=== PATIENT | male | born 1990 | race Caucasian/White ===

== ENCOUNTER 2024-08-05 12:16 | Emergency (ER) | payer OTHER ==
[~2024-08-05] VITALS: Ht 182.9 cm; Wt 102.0 kg
[2024-08-05 12:31] VITALS: TEMP 98.8
[2024-08-05 13:14] LABS: BASOPHILS % (AUTO) 0.6 % (0-1); EOSINOPHILS # (AUTO) 0.1 X10'3 (0-0.9); EOSINOPHILS % (AUTO) 0.9 % (0-6); HEMATOCRIT 47.3 % (42.0-52.0); HEMOGLOBIN 15.9 g/dl (14.0-17.9); LYMPHOCYTES # (AUTO) 2.3 X10'3 (1.1-4.8); LYMPHOCYTES % (AUTO) 32.1 % (21-51); MEAN CORPUSCULAR HEMOGLOBIN 28.8 PG (27.0-31.0); MEAN CORPUSCULAR HGB CONC 33.6 g/dL (33.0-36.5); MEAN CORPUSCULAR VOLUME 85.6 FL (78-98); MEAN PLATELET VOLUME 8.4 FL (7.4-10.4); MONOCYTES # (AUTO) 0.6 X10'3 (0-0.9); MONOCYTES % (AUTO) 7.8 % (2-12); NEUTROPHILS # (AUTO) 4.2 X10'3 (1.8-7.7); NEUTROPHILS % (AUTO) 58.6 % (42-75); PLATELET COUNT 227 X10'3 (140-440); RED BLOOD COUNT 5.53 X10'6 (4.70-6.10); WHITE BLOOD COUNT 7.2 X10'3 (4.5-11.0)
[2024-08-05 13:35] LABS: ALANINE AMINOTRANSFERASE 63 U/L (12-78); ALBUMIN 4.2 G/DL (3.4-5.0); ALBUMIN/GLOBULIN RATIO 1.1 (1.1-1.5); ALKALINE PHOSPHATASE 74 IU/L (46-116); ANION GAP 8 (8-16); ASPARTATE AMINO TRANSFERASE 43 U/L (10-37); BILIRUBIN,TOTAL 0.5 MG/DL (0.1-1.0); BLOOD UREA NITROGEN 11 MG/DL (7-18); BUN/CREATININE RATIO 10.9 (10.0-20.0); CHLORIDE 103 MMOL/L (99-107); CREATININE 1.01 MG/DL (0.60-1.10); GLUCOSE 91 MG/DL (70-104); LIPASE 56 U/L (16-77); SODIUM 140 MMOL/L (135-145); TOTAL CARBON DIOXIDE 29.4 MMOL/L (24-32); TOTAL PROTEIN 8.1 G/DL (6.4-8.2); eCRCL 113 ML/MIN; eGFR 85 ML/MIN
[2024-08-05 14:53] LABS: BILIRUBIN,URINE NEGATIVE (Neg); CLARITY,URINE CLEAR (Clear); COLOR,URINE YELLOW (Yellow); GLUCOSE, URINE NEGATIVE (Neg); KETONES,URINE NEGATIVE (Neg); LEUKOCYTE ESTERASE ,URINE NEGATIVE (Neg); NITRITES, URINE NEGATIVE (Neg); OCCULT BLOOD,URINE NEGATIVE (Neg); PH,URINE 6.5 (4.8-8.0); PROTEIN,URINE NEGATIVE (Neg); UROBILINOGEN,URINE 0.2 E.U/dL (0.2-1.0)
[2024-08-05 14:58] LABS: UA COLLECTION TYPE NON-SPECIFIED
[2024-08-05 15:05] LABS: C-REACTIVE PROTEIN 0.55 MG/DL (0.0-0.5)
--- NOTE | 2024-08-05 15:21 | Physician Documentation ---
History of Present Illness Chief Complaint: Abdominal Pain Stated Complaint: ABD PAIN Time Seen by MD: 14:16 Mode of Arrival: Ambulatory HPI Patient is seen today stating that he was treated about four months ago for uncomplicated appendicitis with a round of antibiotics including Flagyl and possibly ciprofloxacin. Patient states his right lower quadrant abdominal pain resolved at that time in his now been pain-free and symptom-free until driving down from [place] the other day and states he is starting to feel a smoldering right lower quadrant abdominal pain. Patient denies any fevers or chills or appetite absence or nausea, vomiting, diarrhea or chest pain or shortness of breath. Patient has no other concern or complaint at this time. Medication Reconciliation Allergies: Coded Allergies: No Known Allergies (Unverified , 08/05/24) Physical Exam Vital Signs: Temperature: 98.8, Source: Temporal, Heart Rate: 80, Respiratory Rate: 16, BP: 146/84, Pulse Oximetry: 99, Weight: 102.000 Oxygen Flow Rate: 0 Progress Results/Orders Results/Orders Orders - CRISTAL CONTI PAC ESR (08/05/24 14:22) Vital Signs 08/05/24 08/05/24 12:31 14:46 Temp 98.8 Pulse 90 80 Resp 18 16 B/P (MAP) 129/94 146/84 (104) Pulse Ox 99 99 O2 Flow Rate 0 Laboratory Tests Test 08/05/24 12:46 08/05/24 14:41 White Blood Count 7.2 Red Blood Count 5.53 Hemoglobin 15.9 Hematocrit 47.3 Mean Corpuscular Volume 85.6 Mean Corpuscular Hemoglobin 28.8 Mean Corpuscular Hemoglobin Concent 33.6 Red Cell Distribution Width 14.0 Platelet Count 227 Mean Platelet Volume 8.4 Neutrophils (%) (Auto) 58.6 Lymphocytes (%) (Auto) 32.1 Monocytes (%) (Auto) 7.8 Eosinophils (%) (Auto) 0.9 Basophils (%) (Auto) 0.6 Neutrophils # (Auto) 4.2 Lymphocytes # (Auto) 2.3 Monocytes # (Auto) 0.6 Eosinophils # (Auto) 0.1 Basophils # (Auto) 0.0 CBC Comment Sodium Level 140 Potassium Level 4.0 Chloride Level 103 Carbon Dioxide Level 29.4 Anion Gap 8 Blood Urea Nitrogen 11 Creatinine 1.01 Estimated GFR/1.73 m2 85 BUN/Creatinine Ratio 10.9 Glucose Level 91 Calcium Level 9.0 Total Bilirubin 0.5 Aspartate Amino Transf (AST/SGOT) 43 H Alanine Aminotransferase (ALT/SGPT) 63 Alkaline Phosphatase 74 C-Reactive Protein 0.55 H Total Protein 8.1 Albumin 4.2 Globulin 3.9 Albumin/Globulin Ratio 1.1 Lipase 56 Chemistry Comments Urine Specimen Description Non-specified Urine Color Yellow Urine Clarity Clear Urine pH 6.5 Urine Specific [place] 1.010 Urine Protein Negative Urine Glucose (UA) Negative Urine Ketones Negative Urine Occult Blood Negative Urine Nitrite Negative Urine Bilirubin Negative Urine Urobilinogen 0.2 Urine Leukocyte Esterase Negative Urine Culture Indicated Not ind Volume Urine Centrifuged 10 ml Urine Comment Medical Decision Making Findings Patient is seen today stating that he was treated about four months ago for uncomplicated appendicitis with a round of antibiotics including Flagyl and possibly ciprofloxacin. Patient states his right lower quadrant abdominal pain resolved at that time in his now been pain-free and symptom-free until driving down from [place] the other day and states he is starting to feel a smoldering right lower quadrant abdominal pain. Patient denies any fevers or chills or appetite absence or nausea, vomiting, diarrhea or chest pain or shortness of breath. Patient has no other concern or complaint at this time. Patient's labs are largely unremarkable with normal white count, normal ESR level, slightly elevated CRP. Patient was given prescription of Augmentin to be taken as prescribed. Patient will will follow up with primary care in 2-5 days if no better as needed sooner. Return to ED with any worsening, concerning or changing symptoms. Strict return precautions for surgical consult explained to patient and patient voiced understanding. Departure Disposition: HOME / SELF CARE / HOMELESS Impression: Primary Impression: Abdominal pain Qualified Codes: R10.31 - Right lower quadrant pain Discharge Instructions: Abdominal Pain (Nonspecific) Additional Instructions: Patient's labs are largely unremarkable with normal white count, normal ESR level, slightly elevated CRP. Patient was given prescription of Augmentin to be taken as prescribed. Patient will will follow up with primary care in 2-5 days if no better as needed sooner. Return to ED with any worsening, concerning or changing symptoms. Referrals: NO PRIMARY CARE PROVIDER (PCP) Prescriptions Amox Tr/Potassium Clavulanate (Augmentin 875-125 Tablet) 1 Each Tablet 1 TAB PO Q12H for 10 Days, #20 TAB Prov: CRISTAL CONTI PAC 08/05/24 Signature Scribe Signature: No scribe Attestation: No scribCRISTAL Latham PAC Aug 05, 2024 15:21
[2024-08-05 16:19] VITALS: BP 135/78; PULSE 65; RESP 16; O2SAT 99
[2024-08-05] MEDS ORDERED: AMOX-117 PO (16:26)
== END 2024-08-05 16:35 | disposition home or self-care (01) ==
LOC: ER 12:18
DX: R10.31 Right lower quadrant pain (principal)
CPT/HCPCS: 36415; 80053; 81003; 83690; 85025; 85651; 86140; 99283